=== PATIENT | female | born 1970 | race Caucasian/White ===

== ENCOUNTER 2018-02-06 15:48 | Emergency (ER) | payer BC, OTHER ==
[2018-02-06] MEDS ORDERED: LET GEL TOPICAL 1 EA SYR TP ONE (16:15)
[2018-02-06] MEDS ORDERED: ACETAMINOPHEN 500 MG TAB PO ONE (16:20)
[2018-02-06] MEDS ORDERED: IBUPROFEN 600 MG TAB PO ONE (16:20)
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
[2018-02-06 18:11] VITALS: BP 132/86
== END 2018-02-06 18:10 | disposition home or self-care (01) ==
LOC: CED 15:48
PROC: 0HQDXZZ Repair Right Lower Arm Skin, External Approach (ICD-10-PCS; principal; 2018-02-06)
DX: S06.0X0A Concussion without loss of consciousness, initial encounter (principal); S50.311A Abrasion of right elbow, initial encounter; S51.011A Laceration without foreign body of right elbow, initial encounter; V18.0XXA Pedal cycle driver injured in noncollision transport accident in nontraffic accident, initial encounter; Y92.410 Unspecified street and highway as the place of occurrence of the external cause; Y99.8 Other external cause status; Y93.55 Activity, bike riding

== ENCOUNTER → 2019-01-02 | Outpatient (CLI) | payer BC | LOC: CIMAGING 11:05 ==